=== PATIENT | male | born 1995 | race Hispanic/Latino ===

== ENCOUNTER 2019-02-01 20:01 | Emergency (ER) | payer SELFPAY ==
[2019-02-01 21:03] VITALS: BMI 23.5
[2019-02-01] MEDS ORDERED: TDAP Vaccine 0.5 mL Syr IM ONE (21:18)
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
[2019-02-01 22:24] VITALS: BP 142/75; PULSE 87; RESP 18; TEMP 98.5; O2SAT 99
== END 2019-02-01 23:29 | disposition home or self-care (01) ==
LOC: ED 20:01
DX: S01.81XA Laceration without foreign body of other part of head, initial encounter (principal); Y08.89XA Assault by other specified means, initial encounter